=== PATIENT | male | born 1990 | race Caucasian/White ===

== ENCOUNTER 2018-11-17 21:10 | Emergency (ER) | payer OTHER ==
[2018-11-17 21:21] VITALS: BP 115/67; TEMP 98; BMI 24.0
[2018-11-17 21:23] VITALS: PULSE 82
[2018-11-17] MEDS ORDERED: KETOROLAC TROMETHAMINE 60 MG/2 ML VIAL IM ONE (22:18)
[2018-11-17] MEDS ORDERED: KETOROLAC TROMETHAMINE 60 MG/2 ML VIAL ONE (22:23)
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
== END 2018-11-17 23:05 | disposition home or self-care (01) ==
LOC: JERFT 21:10
PROC: 3E0233Z Introduction of Anti-inflammatory into Muscle, Percutaneous Approach (ICD-10-PCS; principal; 2018-11-17)
DX: M54.5 Low back pain (principal); M25.562 Pain in left knee; W00.2XXA Other fall from one level to another due to ice and snow, initial encounter; Y93.89 Activity, other specified; Y92.89 Other specified places as the place of occurrence of the external cause; Y99.8 Other external cause status
CPT/HCPCS: 72100-TC-FY; 73562-TC-LT-FY; 99281-25